=== PATIENT | male | born 2000 | race Two or more races ===

== ENCOUNTER 2024-04-29 19:40 | Emergency (ER) | payer SELFPAY ==
[~2024-04-29] VITALS: Ht 190.5 cm; Wt 86.3 kg
[2024-04-29 19:40] VITALS: BP 0/0; PULSE 0; RESP 0; O2SAT 0
== END 2024-04-30 01:00 ==
LOC: ER 19:40 → EDUNIT# 19:40 → ER 04-30 01:00
DX: I46.9 Cardiac arrest, cause unspecified (principal)
CPT/HCPCS: 31500; 32556; 36556; 92950; 99291